=== PATIENT | female | born 1980 | race Caucasian/White ===

== ENCOUNTER 2017-09-11 15:21 | Emergency (ER) | payer SELFPAY ==
[2017-09-11 15:31] VITALS: BP 146/65; PULSE 90; RESP 18; TEMP 97.8; O2SAT 99
--- NOTE | 2017-09-11 17:32 | ED PDOC ---
HPI: Female Pain Time Seen by Provider: 09/11/17 16:34 Chief Complaint (Nursing): Female Genitourinary Chief Complaint (Provider): Female Genitourinary History Per: Patient History/Exam Limitations: no limitations Onset/Duration Of Symptoms: Days (x2) Current Symptoms Are (Timing): Still Present Additional Complaint(s): Jonathan Robles is a 37 year old female with no significant past medical history, who presents to the ED complaining of dysuria with associated urinary frequency x2 days.She denies any back pain, fever, nausea, or vomiting. She reports feeling like she had a tactile fever yesterday which resolved that day. She notes a history of similar symptoms 2 years ago when she was diagnosed with a UTI. LNMP 2 weeks ago. PMD: [facility] Past Medical History Reviewed: Historical Data, Nursing Documentation, Vital Signs Vital Signs: Last Vital Signs Temp 97.8 F 09/11/17 15:29 Pulse 90 09/11/17 15:29 Resp 18 09/11/17 15:29 BP 146/65 09/11/17 15:29 Pulse Ox 99 09/11/17 15:29 - Medical History PMH: No Chronic Diseases - Family History Family History: States: Unknown Family Hx - Home Medications Home Medications: Ambulatory Orders Medication Instructions Recorded Albuterol 0.083% [Albuterol 0.083% 2.5 mg IH Q8 PRN #100 neb 12/02/16 Inhal Romina (2.5 mg/3 ml) UD] Azithromycin [Zithromax] 250 mg PO DAILY #4 tab 12/02/16 Ibuprofen [Motrin] 600 mg PO Q8 PRN #21 tab 12/02/16 Mask, Face [Nebulizer Aerosol Mask 1 dev XX PRN PRN #1 dev 12/02/16 Adult] Nebulizer [Aeroeclipse II] 1 each MC Q8 PRN #1 each 12/02/16 Promethazine/Codeine 5 ml PO Q12 PRN #100 ml 12/02/16 [Codeine/Promethazine 10 MG/5 Ml-6.25 MG/5 Ml] Nitrofurantoin Macrocrystals 100 mg PO BID 7 Days #14 cap 09/11/17 [Macrobid] Phenazopyridine [Phenazopyridine 200 mg PO TID 2 Days #6 tab 09/11/17 HCl] - Allergies Allergies/Adverse Reactions: Allergies Allergy/AdvReac Type Severity Reaction Status Date / Time No Known Allergies Allergy Verified 09/11/17 15:29 Review of Systems ROS Statement: Except As Marked, All Systems Reviewed And Found Negative Constitutional: Positive for: Fever (tactile yesterday with resolution) Gastrointestinal: Negative for: Nausea, Vomiting Genitourinary Female: Positive for: Dysuria, Frequency. Negative for: Incontinence, Hematuria, Vaginal Discharge, Vaginal Bleeding, Pelvic Pain Musculoskeletal: Negative for: Back Pain Physical Exam - Reviewed Nursing Documentation Reviewed: Yes Vital Signs Reviewed: Yes - Physical Exam Appears: Positive for: Well, No Acute Distress Head Exam: Positive for: ATRAUMATIC Skin: Positive for: Normal Color. Negative for: Rash Eye Exam: Positive for: Normal appearance Gastrointestinal/Abdominal: Positive for: Normal Exam, Soft. Negative for: Tenderness Back: Positive for: Normal Inspection. Negative for: L CVA Tenderness, R CVA Tenderness, Vertebral Tenderness Neurologic/Psych: Positive for: Alert, Oriented (x3) - Laboratory Results Urine POC: Negative Urine dip results: Positive for: Leukocyte Esterase, Blood. Negative for: Nitrate, Ketones, Glucose, Bilirubin, Protein - ECG O2 Sat by Pulse Oximetry: 99 (RA) Pulse Ox Interpretation: Normal Medical Decision Making Medical Decision Making: Time: 16:44 Initial Impression: Possible UTI Plan: --Urine --Urine culture --Urinalysis --Reevaluation In light of UA results and patient's symptoms, patient treated with Macrobid and Pyridium. She was advised to drink plenty of fluids, take medication as prescribed, and f/ u with PMD/Clinic for reevaluation. Return with any worsening or change in symptoms. She expresses understanding and agreement. Scribe Attestation: Documented by Lucian Mace, acting as a scribe for Siena Tariq PA-C Provider Scribe Attestation: All medical record entries made by the Scribe were at my direction and personally dictated by me. I have reviewed the chart and agree that the record accurately reflects my personal performance of the history, physical exam, medical decision making, and the department course for this patient. I have also personally directed, reviewed, and agree with the discharge instructions and disposition. Disposition - Clinical Impression Clinical Impression: UTI (urinary tract infection) - Patient ED Disposition Is Patient to be Admitted: No Counseled Patient/Family Regarding: Studies Performed, Diagnosis, Need For Followup, Rx Given - Disposition Referrals: [facility] [Outside] Disposition: Routine/Home Disposition Time: 18:14 Condition: STABLE Additional Instructions: Take medication as prescribed, f/u with PMD/Clinic and return to the ED for any worsening or change in symptoms. Prescriptions: Nitrofurantoin Macrocrystals [Macrobid] 100 mg PO BID 7 Days #14 cap Phenazopyridine [Phenazopyridine HCl] 200 mg PO TID 2 Days #6 tab Instructions: Urinary Tract Infection in Women (ED) Forms: [facility] (Swedish) Print Language: ITALIAN
[2017-09-11 18:06] LABS: URINE BACTERIA RARE (<OCC); URINE BILIRUBIN NEGATIVE (NEGATIVE); URINE BLOOD SMALL (NEGATIVE); URINE COLOR COLORLESS (YELLOW); URINE GLUCOSE (UA) NEG (Normal); URINE KETONE NEGATIVE (NEGATIVE); URINE LEUKOCYTE ESTERASE TRACE Leu/uL (Negative); URINE PROTEIN NEGATIVE (NEGATIVE); URINE UROBILINOGEN 0.2-1.0 mg/dL (0.2-1.0)
[2017-09-11 18:09] LABS: RBC URINE 7 /hpf (0-3); WBC URINE 9 /hpf (0-5)
== END 2017-09-11 18:42 | disposition home or self-care (01) ==
LOC: H.ER 15:21
DX: N39.0 Urinary tract infection, site not specified (principal)

== ENCOUNTER 2017-10-06 11:25 | Emergency (ER) | payer SELFPAY ==
[2017-10-06 11:31] VITALS: BP 115/75; PULSE 94; TEMP 98; O2SAT 99
[2017-10-06 11:32] VITALS: BMI 23.8
[2017-10-06 11:45] VITALS: RESP 17
--- NOTE | 2017-10-06 12:51 | ED PDOC ---
HPI: CCC, URI, Sore Throat Time Seen by Provider: 10/06/17 11:33 Chief Complaint (Nursing): Cough, Cold, Congestion Chief Complaint (Provider): Throat pain, tactile fever History Per: Patient, Family History/Exam Limitations: no limitations Onset/Duration Of Symptoms: Days (2) Current Symptoms Are (Timing): Still Present Location Of Pain: Throat Sick Contacts (Context): None Associated Symptoms: Fever, Sore Throat. denies: Chills, Cough, Sputum, Myalgias, Vomiting, Diarrhea Ear Symptoms: Bilateral: None Additional Complaint(s): No medications taken for pain in the past. Past Medical History Reviewed: Historical Data, Nursing Documentation, Vital Signs Vital Signs: Last Vital Signs Temp 98 F 10/06/17 11:41 Pulse 94 H 10/06/17 11:41 Resp 17 10/06/17 11:41 BP 115/75 10/06/17 11:41 Pulse Ox 99 10/06/17 11:41 - Medical History PMH: No Chronic Diseases - Surgical History Surgical History: No Surg Hx - Family History Family History: States: Unknown Family Hx - Living Arrangements Living Arrangements: With Family - Social History Current smoker - smoking cessation education provided: No - Home Medications Home Medications: Ambulatory Orders Medication Instructions Recorded Albuterol 0.083% [Albuterol 0.083% 2.5 mg IH Q8 PRN #100 neb 12/02/16 Inhal Romina (2.5 mg/3 ml) UD] Azithromycin [Zithromax] 250 mg PO DAILY #4 tab 12/02/16 Ibuprofen [Motrin] 600 mg PO Q8 PRN #21 tab 12/02/16 Mask, Face [Nebulizer Aerosol Mask 1 dev XX PRN PRN #1 dev 12/02/16 Adult] Nebulizer [Aeroeclipse II] 1 each MC Q8 PRN #1 each 12/02/16 Promethazine/Codeine 5 ml PO Q12 PRN #100 ml 12/02/16 [Codeine/Promethazine 10 MG/5 Ml-6.25 MG/5 Ml] Nitrofurantoin Macrocrystals 100 mg PO BID 7 Days #14 cap 09/11/17 [Macrobid] Phenazopyridine [Phenazopyridine 200 mg PO TID 2 Days #6 tab 12/11/17 HCl] - Allergies Allergies/Adverse Reactions: Allergies Allergy/AdvReac Type Severity Reaction Status Date / Time No Known Allergies Allergy Verified 09/11/17 15:29 Review of Systems ROS Statement: Except As Marked, All Systems Reviewed And Found Negative Constitutional: Positive for: Fever (Tactile, no temp at home ). Negative for: Chills ENT: Positive for: Throat Pain Cardiovascular: Negative for: Chest Pain, Palpitations Respiratory: Negative for: Cough, Shortness of Breath Physical Exam - Reviewed Nursing Documentation Reviewed: Yes Vital Signs Reviewed: Yes - Physical Exam Appears: Positive for: Well, Non-toxic, No Acute Distress Head Exam: Positive for: ATRAUMATIC, NORMAL INSPECTION, NORMOCEPHALIC Skin: Positive for: Normal Color, Warm, DRY Eye Exam: Positive for: Normal appearance ENT: Positive for: Normal ENT Inspection. Negative for: Pharynx Is (Mild erythema of pharynx and tonsils, uvula midline ) Neck: Positive for: Normal, Painless ROM Cardiovascular/Chest: Positive for: Regular Rate, Rhythm Respiratory: Positive for: CNT, Normal Breath Sounds Gastrointestinal/Abdominal: Positive for: Normal Exam, Bowel Sounds, Soft Back: Positive for: Normal Inspection Extremity: Positive for: Normal ROM Neurologic/Psych: Positive for: Alert, Oriented - ECG O2 Sat by Pulse Oximetry: 99 Disposition - Clinical Impression Clinical Impression: Viral pharyngitis - Patient ED Disposition Is Patient to be Admitted: No Counseled Patient/Family Regarding: Diagnosis, Need For Followup - Disposition Disposition: Routine/Home Disposition Time: 12:51 Condition: GOOD Instructions: Pharyngitis (ED) Print Language: ENGLISH
== END 2017-10-06 13:19 | disposition home or self-care (01) ==
LOC: H.ER 11:25
DX: J02.9 Acute pharyngitis, unspecified (principal)

== ENCOUNTER 2018-07-13 21:03 | Emergency (ER) | payer OTHER ==
[2018-07-13 21:03] VITALS: BMI 23.8
[2018-07-13 21:46] VITALS: RESP 20
--- NOTE | 2018-07-14 00:02 | ED PDOC ---
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 She notes she is 24 weeks and wasnt sure what she could and couldnt take, prompting ED visit. Patient reports sick contacts in her daughter. 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 Patient denies headache, ear pain, shortness of breath, chest pain, abdominal pain, nausea, vomiting, dizziness, or diarrhea. PMD: Clinic LNMP: 6 months ago <Suzy Snow - Last Filed: 07/14/18 00:59> <Yenny Stein - Last Filed: 07/14/18 22:31> Time Seen by Provider: 07/13/18 22:36 Chief Complaint (Nursing): Fever Supervising Attending Note - Attestation: I have personally seen and examined this patient.: No I have reviewed all pertinent clinical information, including history, physical exam and plan: Yes <Yenny Stein - Last Filed: 07/14/18 22:31> Past Medical History Reviewed: Historical Data, Nursing Documentation, Vital Signs Vital Signs: Last Vital Signs Temp 98 F 07/13/18 21:43 Pulse 99 H 07/13/18 21:43 Resp 20 07/13/18 21:43 BP 104/66 07/13/18 21:43 Pulse Ox 99 07/13/18 21:43 - Medical History PMH: Pneumonia - Surgical History Surgical History: No Surg Hx - Family History Family History: States: Unknown Family Hx <Suzy Snow - Last Filed: 07/14/18 00:59> Vital Signs: Last Vital Signs Temp 97.8 F 07/14/18 00:05 Pulse 80 07/14/18 00:05 Resp 20 07/13/18 21:43 BP 94/50 L 07/14/18 00:05 Pulse Ox 99 07/14/18 01:09 <Yenny Stein - Last Filed: 07/14/18 22:31> - Home Medications Home Medications: Ambulatory Orders Medication Instructions Recorded Albuterol 0.083% [Albuterol 0.083% 2.5 mg IH Q8 PRN #100 neb 12/02/16 Inhal Romina (2.5 mg/3 ml) UD] Azithromycin [Zithromax] 250 mg PO DAILY #4 tab 12/02/16 Ibuprofen [Motrin] 600 mg PO Q8 PRN #21 tab 12/02/16 Mask, Face [Nebulizer Aerosol Mask 1 dev XX PRN PRN #1 dev 12/02/16 Adult] Promethazine/Codeine 5 ml PO Q12 PRN #100 ml 12/02/16 [Codeine/Promethazine 10 MG/5 Ml-6.25 MG/5 Ml] RX: Nebulizer [Aeroeclipse II] 1 each MC Q8 PRN #1 each 12/02/16 Nitrofurantoin Macrocrystals 100 mg PO BID 7 Days #14 cap 09/11/17 [Macrobid] Phenazopyridine [Phenazopyridine 200 mg PO TID 2 Days #6 tab 09/11/17 HCl] Acetaminophen [Acetaminophen 8 650 mg PO Q8 PRN #21 tablet.er 07/13/18 Hour] RX: Amoxicillin 875 mg PO BID #14 tablet 07/13/18 - Allergies Allergies/Adverse Reactions: Allergies Allergy/AdvReac Type Severity Reaction Status Date / Time No Known Allergies Allergy Verified 07/13/18 21:43 Review of Systems ROS Statement: Except As Marked, All Systems Reviewed And Found Negative Constitutional: Positive for: Fever ENT: Positive for: Nose Congestion, Throat Pain. Negative for: Ear Pain Cardiovascular: Negative for: Chest Pain Respiratory: Positive for: Cough. Negative for: Shortness of Breath Gastrointestinal: Negative for: Nausea, Vomiting, Abdominal Pain, Diarrhea Neurological: Negative for: Headache, Dizziness <Suzy Snow - Last Filed: 07/14/18 00:59> Physical Exam - Reviewed Nursing Documentation Reviewed: Yes Vital Signs Reviewed: Yes - Physical Exam Comments: GENERAL APPEARANCE: Patient is awake, alert, not toxic appearing, in no acute distress. SKIN: Warm, dry; (-) cyanosis; (-) petechiae, (-) other rash EYES: (-) conjunctival pallor, (-) icterus. ENMT: TMs (-) erythema (-) bulging. Pharynx: (+) bilateral tonsillar erythema, (+) right sided tonsillar exudate. Airway patent, (-) stridor. Mucous membranes moist. Uvula midline. (+) 1+ tonsillar hypertrophy NECK: (-) stiffness, (-) meningismus, (-) lymphadenopathy. CHEST AND RESPIRATORY: (-) retractions, (-) rales, (-) rhonchi, (-) wheezes; breath equal bilaterally. HEART AND CARDIOVASCULAR: (-) irregularity; (-) murmur, (-) gallop. ABDOMEN AND GI: Soft; (-) tenderness; (-) distention, (-) guarding; (-) palpable mass. Normal gravid uterus. EXTREMITIES: (-) deformity; distal pulses are present NEURO AND PSYCH: Mental status as above; interacts appropriately for age. Strength and tone good. <Suzy Snow - Last Filed: 07/14/18 00:59> - ECG O2 Sat by Pulse Oximetry: 99 (RA) Pulse Ox Interpretation: Normal <Suzy Snow - Last Filed: 07/14/18 00:59> Medical Decision Making Medical Decision Making: Time: 2237 Initial Impression: pharyngitis, tonsillitis, cough and congestion Initial Plan --Amoxicillin 500 mg PO --Tylenol 650 mg PO --Throat culture --Influenza A B --Rapid strep 0000 Rapid Strep: Negative Influenza: Negative On re-evaluation, patient reports improvement of symptoms. On exam, patient remains AAOx3, in no acute distress. Lungs CTA, cardiac RRR, abdomen soft, nontender, repeat neuro exam shows no focal findings. Vitals stable. Lab/Diagnostic results d/w with the patient in great detail. Diagnosis of pharyngitis/tonsillitis, cough and congestion d/w patient. Based on history, exam, and diagnostic results, plan will be for outpatient follow up. Patient instructed to follow up with PMD / referral provided / the clinic in 1-2 days without fail. Advised to take medication as prescribed. Return to the emergency room at any time for any new or worsening symptoms. Patient states she agrees with and understandings discharge instructions. States that she agrees with the plan and disposition. Verbalized and repeated discharge instructions and plan. I have given the patient opportunity to ask any additional questions. Scribe Attestation: Documented by Cat Green, acting as a scribe for Suzy Snow PA-C Provider Scribe Attestation: All medical record entries made by the Scribe were at my direction and personally dictated by me. I have reviewed the chart and agree that the record accurately reflects my personal performance of the history, physical exam, medical decision making, and the department course for this patient. I have also personally directed, reviewed, and agree with the discharge instructions and disposition. <Suzy Snow - Last Filed: 07/14/18 00:59> Disposition - Patient ED Disposition Is Patient to be Admitted: No Counseled Patient/Family Regarding: Studies Performed, Diagnosis, Need For Followup, Rx Given - Disposition Disposition: Routine/Home Disposition Time: 23:59 - POA Present On Arrival: None <Suzy Snow - Last Filed: 07/14/18 00:59> <Yenny Stein - Last Filed: 07/14/18 22:31> - Clinical Impression Clinical Impression: Pharyngitis, Tonsillitis, Cough in adult, Nasal congestion - Disposition Referrals: [facility] [Outside] [facility] [Outside] Condition: STABLE Additional Instructions: La atencin mdica de emergencia que recibi hoy se dirigi hacia priya sntomas agudos. Si le recetaron un medicamento, llnelo en la farmacia y tmelo segn las indicaciones. Los sntomas pueden tardar varios callahan en resolverse. Regrese al departamento de emergencias si priya sntomas empeoran, no mejoran o si tiene otros problemas. Comunquese con hendrix mdico / proveedor / clnica referida en 2 callahan para cosme evaluacin adicional. El tratamiento en el departamento de emergencias no puede reemplazar la atencin mdica en curso por parte de un mdico de cabecera fuera del departamento de emergencias. Prescriptions: Acetaminophen [Acetaminophen 8 Hour] 650 mg PO Q8 PRN #21 tablet.er PRN Reason: fever, pain RX: Amoxicillin 875 mg PO BID #14 tablet Instructions: Cough in Adults, Sore Throat in Adults, Bacterial Upper Respiratory Infection, Adult Forms: [employer] (Kiswahili) Print Language: TELUGU Results - Lab Results Lab Results: 07/13/18 07/13/18 23:01 23:01 Influenza Typ A,B (EIA) Negative for flu a/b Grp A Beta Strep Ag Negative <Suzy Snow - Last Filed: 07/14/18 00:59> - Lab Results Lab Results: 07/13/18 07/13/18 23:01 23:01 Influenza Typ A,B (EIA) Negative for flu a/b Grp A Beta Strep Ag Negative <Yenny Stein - Last Filed: 07/14/18 22:31>
[2018-07-14 00:12] VITALS: BP 94/50; PULSE 80; TEMP 97.8
[2018-07-14 01:01] VITALS: O2SAT 99
== END 2018-07-14 00:10 | disposition home or self-care (01) ==
LOC: H.ER 21:03
DX: J03.90 Acute tonsillitis, unspecified (principal); R05 Cough

== ENCOUNTER 2018-10-09 08:20 | Emergency (ER) | payer SELFPAY ==
[2018-10-09 09:34] VITALS: BMI 27.0
[2018-10-09 17:05] VITALS: BP 110/69; PULSE 88
--- NOTE | 2018-10-10 01:22 | OBDCSUM ---
Datetime: 10/09/2018 09:32 Discharge Diagnosis, Provider: False Labor - Undelivered
--- NOTE | 2018-10-10 01:22 | OBHP ---
Datetime: 10/09/2018 09:20 IP Adm Impression: , intrauterine ; No Active Labor; Intact Membranes IP Admit Plan: Observation/Evaluation; Discharge home Admit Comment, IP Provider: 38 y/o, , with 36.1 wks with EDC of 11/05/18 based on 1st trimester US presents to [facility] with vaginal spotting that started yesterday evening. Vaginnal spotting is scent , thick brownish fluid. Denies any active VB. Denies LOF or CTx. Endorses good movements. Denie s dysuria, fever, chills, N/V/D/C. : [facility] Course: AMA, Diet controlled GDM Dx at 26 weeks, S/p uncomplicated term @ 30, Transamin itis, F/Hx of heart Dx, EKG/maternal echo NL (06/19), echo per genetics: done 06/27 Last US: Placenta Anterior, No previa seen, Grade 1 PMHx: Denies PSHx: Denies Allergies: NKDA Medications: PNVs SOcialHx: Denies ETOH/smoking/drugs F/H: Mom of [place] in 30s, Sister diagnosed with heart condition in 30s A/P: 38 y/o, , with 36.1 wks with vaginal spotting - EFM and toco monitoring: NST reactive, Irregular CTx - SSE/SVE: close/thick/post. No active VB - Bedside US done - Patient to F/U with [facility] today for US - GBS Cx sent - Patient to follow up with [facility] clinic within 1 week for follow up. Labor precautions provided. Case discussed with Dr. Virgilio Castro, PGY1 [facility]. I saw and examied this pt. She has appt later today for sono 3:30pm. Will call to scheduled earlier. She does not have another appt with [facility]. She was expecting a call last w three affiliated. WIll do GBS culutre now...follo wup with [facility] within one week. PGY1 resident will contact [facility] t o schedule. Pelvic Type - PN: Adequate Extremities - PN: Normal Abdomen - PN: Normal Back - PN: Normal Breast - PN: Normal Lungs - PN: Normal Heart - PN: Normal Thyroid - PN: Not Done Neurologic - PN: Normal HEENT - PN: Normal General - PN: Normal Presentation-Admit: Vertex Membranes, Provider: Intact Comments, ACOG Physical Exam: SSE/SVE: Cervix close, thick, posterior, No active VB. Pool Provider: Negative IP Hx Assessment: The History has been Reviewed and is Current EGA AdmitDate IP: 36.1 Vital Signs Provider: Reviewed; Within Normal Limits IP Chief Complaint: Vaginal bleeding FHR Category Provider Fetus A: Category I Dilatation, Provider: 0 Effacement, Provider: thick Station, Provider: posterior Genitourinary Exam: Normal DTRs - PN: Not Done
== END 2018-10-09 09:56 | disposition home or self-care (01) ==
LOC: H.EROB2 08:20 → H.L&D 08:45 → H.EROB2 09:56
DX: O26.853 Spotting complicating pregnancy, third trimester (principal); O24.410 Gestational diabetes mellitus in pregnancy, diet controlled; Z3A.36 36 weeks gestation of pregnancy

== ENCOUNTER 2018-11-05 02:23 | Inpatient (IN) | payer MEDICAID, SELFPAY ==
[2018-11-05 03:14] VITALS: BMI 29.0
[2018-11-05 03:48] LABS: BASO # 0.1 K/uL (0.0-0.2); BASO % 0.6 % (0.0-2.0); EOS # 0.1 K/uL (0.0-0.7); EOS % 0.6 % (0.0-4.0); HEMOGLOBIN 11.2 g/dL (12.0-16.0); LYMPH # 1.6 K/uL (1.0-4.3); LYMPH % 16.4 % (20.0-40.0); MEAN CELL VOLUME 79.2 fl (81.0-99.0); MEAN CORPUSCULAR HEMOGLOBIN 25.7 pg (27.0-31.0); MEAN CORPUSCULAR HGB CONC 32.5 g/dL (33.0-37.0); MEAN PLATELET VOLUME 9.8 fl (7.2-11.7); MONO # 0.7 K/uL (0.0-0.8); MONO % 6.9 % (0.0-10.0); NEUT # 7.5 K/uL (1.8-7.0); NEUT % 75.5 % (50.0-75.0); NRBC % 0.1 % (0.0-0.0); RBC 4.36 Mil/uL (3.80-5.20); RED CELL DISTRIBUTION WIDTH 15.2 % (11.5-14.5)
[2018-11-05] MEDS: Lactated Ringer's 1,000 ML IV SCH ×5 (04:00→13:11)
[2018-11-05] MEDS ORDERED: Fentanyl/Bupivacaine HCl 250 ML EPI ONE (05:19)
[2018-11-05 06:39] VITALS: O2SAT 98
[2018-11-05] MEDS ORDERED: Oxytocin 30 UNIT 30 UNITS/500 ML BAG IV ONE ×2 (07:18→13:12)
[2018-11-05] MEDS ORDERED: Lactated Ringer's 1,000 ML IV SCH (07:30)
[2018-11-05] MEDS ORDERED: OXYTOCIN/0.9 % NS 20 UNIT/1,000 ML BAG IV SCH (07:30)
--- NOTE | 2018-11-05 07:41 | OBADHP ---
Datetime: 11/05/2018 07:22 Pelvic Type - PN: Adequate Extremities - PN: Normal Abdomen - PN: Normal Back - PN: Normal Breast - PN: Not Done Lungs - PN: Normal Heart - PN: Normal Thyroid - PN: Normal Neurologic - PN: Normal HEENT - PN: Normal General - PN: Normal FHR - Baseline A Provider: 160 Vital Signs Provider: Reviewed; Within Normal Limits IP Chief Complaint: Uterine contractions; Maternal discomfort NICHD Variability Prov Fetus A: Moderate 6-25bpm NICHD Accel Fetus A IP Provider: 15X15 FHR Category Provider Fetus A: Category I NICHD Decel Fetus A IP Provider: None Dilatation, Provider: 3 Effacement, Provider: 75 Station, Provider: -2 Genitourinary Exam: Normal DTRs - PN: Normal EGA AdmitDate IP: 40.0 IP Adm Impression: Term, intrauterine IP Admit Plan: Admit to unit; Initiate labor protocol Datetime: 11/05/2018 07:07 Admit Comment, IP Provider: 38 y/o, , with IUP @ 40 wks with EDC of 11/05/18 presents to [facility] w ith contractoins and expulsion of her mucus plug last night at 7 p.m. Denies vaginal bleeding and los s of fluid per the vagina. Endorses good movements. Denies dysuria, fever, chills, N/V/D/C. : [facility]- Dr. Kennedy; last visit was 11/01/18 Course: AMA, Diet controlled GDM Dx at 26 weeks, S/p uncomplicated term @ 30, Transamin itis, F/Hx of heart Dx, EKG/maternal echo NL (06/19), echo per genetics: done 06/27 Last US: Placenta Anterior, No previa seen, Grade 1 PMHx: Denies PSHx: Denies Allergies: NKDA Medications: PNVs SocialHx: Denies ETOH/smoking/drugs Family History: Mom of [place] in 30s, Sister diagnosed with heart condition in 30s P.E: patient is comfortable at this time. Vitally stable. Heart: S1 and S2 no murmurs, gallops or rubs. Lungs: Clear bilaterally. No wheezes, rhonchi or rales. Abdomen: Soft, gravid, non-tender. BS present in all quadrants. Extremities: +2 dorsalis pedis pulses bilaterally. No lower extremity edema. SVE: 3cm /75% / -2 A/P: 38 y/o, , with IUP at 40 weeks presented with contractions will be admitted for labor. - Continue EFM and toco monitoring: NST reactive- category 1 tracing with regular contractions - Admit patient - Initiate labor protocol - LR @ maintainence - Anesthesia consult for Epidural - f/u CBC, T_S, HIV, RPR Case discussed with attending Melissa Barahona, PGY1 OB Hopsitalist note: Pt was seen and examined when she cam to [facility] 2-3cm ... WIll admit in labor. Her questions answered about pain managment. MAHNDO Presentation-Admit: Vertex IP Hx Assessment: The History has been Reviewed and is Current Datetime: 10/09/2018 09:20 Membranes, Provider: Intact Comments, ACOG Physical Exam: SSE/SVE: Cervix close, thick, posterior, No active VB. Pool Provider: Negative
--- NOTE | 2018-11-05 10:34 | OBPN ---
Datetime: 11/05/2018 10:29 IP Progress Impression: Normal progression of labor IP Procedures: Artificial ROM; Sterile Vag Exam IP Progress Plan: Continue present management Membranes, Provider: Ruptured Amniotic Fluid Color, Provider: Meconium, Light FHR - Baseline A Provider: 150s IP Progress Note Comment: 38 yo at 40 wks in labor s/p AROM for light meconium Continue current managment Vital Signs Provider: Reviewed NICHD Variability Prov Fetus A: Moderate 6-25bpm Dilatation, Provider: 5 Effacement, Provider: 80 Station, Provider: -3 NICHD Decel Fetus A IP Provider: None Datetime: 11/05/2018 07:22 NICHD Accel Fetus A IP Provider: 15X15 FHR Category Provider Fetus A: Category I Datetime: 11/05/2018 07:07 Presentation-Admit: Vertex Datetime: 10/09/2018 09:20 Pool Provider: Negative
[2018-11-05] MEDS ORDERED: Lidocaine 1% Inj (20ml) ONE (11:22)
--- NOTE | 2018-11-05 13:18 | OBPN ---
Datetime: 11/05/2018 13:14 IP Progress Impression: Normal progression of labor IP Procedures: Sterile Vag Exam IP Progress Plan: Augmentation Membranes, Provider: Ruptured Amniotic Fluid Color, Provider: Meconium, Light Contraction Comments Provider: 2-4 FHR - Baseline A Provider: 140's IP Progress Note Comment: 38 yo at 40 wks in labor s/p AROM FHT reassuring Will start pitocin Vital Signs Provider: Reviewed NICHD Variability Prov Fetus A: Moderate 6-25bpm NICHD Decel Fetus A IP Provider: None
[2018-11-05] MEDS ORDERED: ceFAZolin 1 GM in Sodium Chloride 0.9% 100 ML IVPB ONE (16:34)
[2018-11-05] MEDS ORDERED: Dextrose 5%/Lactated Ringer's 1,000 ML IV SCH (16:45)
--- NOTE | 2018-11-05 17:06 | OBPN ---
Datetime: 11/05/2018 16:55 IP Progress Impression: Arrest of dilatation/descent IP Informed Consent Obtain: Section Delivery; Risks, Benefits and Alternatives Discussed IP Procedures: Sterile Vag Exam IP Progress Plan: Deliver- Section Membranes, Provider: Ruptured Amniotic Fluid Color, Provider: Meconium, Light FHR - Baseline A Provider: 160's IP Progress Note Comment: 38 yo at 40 wks w/ arrest of dilation at 5 cm Temp 100.3 at 4 pm Pt given 650 mg rectal tylenol Sugar 62 at 4pm D5 LR started at 125 ml/hr Discussed arrest of dilation w/ her w/ Moira Almeida R.N. translating Will proceed w/ section Consents for procedure and possible transfusion obtained from pt FHR Category Provider Fetus A: Category II NICHD Variability Prov Fetus A: Moderate 6-25bpm Dilatation, Provider: 5 Effacement, Provider: 90 Station, Provider: -2 NICHD Decel Fetus A IP Provider: None
[2018-11-05] MEDS ORDERED: EPINEPHrine 1 mg/ml (1:1000) Inj ONE (17:14)
[2018-11-05] MEDS ORDERED: Lidocaine 2% PF (10 ml) Amp ONE (17:14)
[2018-11-05] MEDS ORDERED: Morphine 1 mg/ml preservative-free Inj(Duramorph) ONE (17:38)
[2018-11-05] MEDS ORDERED: DiphenhydrAMINE 50 mg/ml Inj IVP PRN ×2 (18:33→21:33)
--- NOTE | 2018-11-05 18:46 | OBDS ---
DELIVERY PERSONNEL Delivery Doctor: She العراقي MD Scrub Nurse: Kiley Malave OBT Razor Grinder: Marlena Graf RNC Anesthesiologist: Alida Guevara MD MATERNAL INFORMATION Delivery Anesthesia: Epidural Medications in Delivery: Pitocin Estimated Blood Loss (ml): 800 Placenta Cultured: Yes Maternal Complications: None RN Comments: Atraumatic Primary of viable babyboy with Lusty cry. Dr. Harris recieved in [place] and assigned 9/9 APGARs. Patient tolerated delivery well. Skin to skin initiated. Patient and recoverying well. Provider Comments: Pre-op dx: 38 yo at 40 wks w/ arrest of dilation at 5 cm Post-op dx: same Procedure: Primary low transverse section Surgeon: Dulce Maria Fire Boss: Dr. Letty Rao, Ob fellow Anesthesia: Epidural Anesthesiologist: Dr. Guevara Findings: Viable male infant delivered through light meconium-stained fluid w/ nuchal cord x 1 at 1744. Apgars 9 and 9. Wt 7#13.4, 3555gms. Nl appearing uterus, tubes and ovaries. EBL: 800mL Fluids: 1600 mL LR Complications: None LABOR SUMMARY EDC: 11/05/2018 00:00 No. Babies in Womb: 1 Attempted: No Labor Anesthesia: Epidural LABOR INFORMATION Onset of Labor: 11/04/2018 19:00 Oxytocin: N/A Group B Beta Strep: Negative Antibiotics # of Doses: 1 Antibiotics Time of Last Dose: 1725 Steroids Given: None Reason Steroids Not Administered: Not Applicable Other Reason Not Administered: Not required MEMBRANES Membranes Rupture Method: Artificial Rupture of Membranes: 11/05/2018 10:27 Length of Rupture (hrs): 7.28 Amniotic Fluid Color: Light Meconium Amniotic Fluid Amount: Large Amniotic Fluid Odor: Normal STAGES OF LABOR Stage 3 hrs: 0 Stage 3 min: 1 Total Time in Labor hrs: 22 Total Time in Labor min: 45 CSECTION DELIVERY Primary Indication: Arrest of Descent CSection Incision: Lower Uterine Transverse BABY A INFORMATION Infant Delivery Date/Time: 11/05/2018 17:44 Method of Delivery: Born in Route : No : N/A Forceps: N/A Vacuum Extraction: N/A Shoulder Dystocia : No SHOULDER DYSTOCIA BABY A Delivery Date/Time: 11/05/2018 17:44 PRESENTATION/POSITION BABY A Presentation: Cephalic Cephalic Presentation: Vertex Vertex Position: Left Occipital Anterior Breech Presentation: N/A PLACENTA INFORMATION BABY A Placenta Delivery Time : 11/05/2018 17:45 Placenta Method of Delivery: Manual Removal Placenta Status: Delivered SCORES BABY A Heart Rate 1 min: >100 bpm Resp Effort 1 min: Good Cry Reflex Irritability 1 min: Cough or Sneeze or Pulls Away Muscle Tone 1 min: Active Motion Color 1 min: Body [place], Extremities Blue Resuscitation Effort 1 min: N/A SCORE 1 MIN: 9 Heart Rate 5 min: >100 bpm Resp Effort 5 min: Good Cry Reflex Irritability 5 min: Cough or Sneeze or Pulls Away Muscle Tone 5 min: Active Motion Color 5 min: Body [place], Extremities Blue Resuscitation Effort 5 min: N/A SCORE 5 MIN: 9 INFORMATION BABY A Gestational Age at Delivery: 40.0 Gestational Status: Term Infant Outcome : Liveborn Condition : Stable Sex: Male IDENTIFICATION/MEDS BABY A ID Band Number: [id number] ID Band Location: Left Leg; Left Arm WEIGHT/LENGTH BABY A Infant Birthweight (gms): 3555 Infant Weight (lb): 7 Infant Weight (oz): 13 Infant Length Inches: 20.50 Infant Length cms: 52.1 CORD INFORMATION BABY A No. Cord Vessels: 3 Nuchal Cord : N/A Cord Blood Taken: No Suction: Mouth
--- NOTE | 2018-11-06 05:10 | OP ---
PROCEDURE DATE: 11/05/2018 PREOPERATIVE DIAGNOSIS: This is a 38-year-old G3, P-1-0-1-1 at 40 weeks with arrest of dilation of 5 cm. POSTOPERATIVE DIAGNOSIS: This is a 38-year-old G3, P-1-0-1-1 at 40 weeks with arrest of dilation of 5 cm. PROCEDURE: Primary low-transverse section. SURGEON: Gil العراقي MD TOW DRIVER: Dr. Letty Rao, OB fellow. ANESTHESIA: Epidural. ANESTHESIOLOGIST: Salty Guevara MD FINDINGS: A viable male infant delivered through light meconium-stained fluid with a nuchal cord x1 at 17:44. Apgars 9 and 9 at 1 and 5 minutes respectively. The weight was 7 pounds 13.4 ounces or 3555 g. The lower uterine segment and the bladder were noted to be edematous. Normal-appearing uterus, tubes, and ovaries. ESTIMATED BLOOD LOSS: About 800 mL. FLUIDS: 1600 mL of LR. COMPLICATIONS: None. DESCRIPTION OF PROCEDURE: The patient was taken to the operating room where epidural anesthesia was bolused. She was prepped and draped in the normal sterile fashion in the dorsal supine position with a leftward tilt. A time-out was done. The epidural was tested and found to be adequate. A Pfannenstiel skin incision was then made with a scalpel and carried through to the underlying layer of fascia with the Bovie. The fascia was incised in the midline, and the incision was extended laterally with Frazier scissors. The inferior aspect of the fascial incision was then grasped with Kavitha clamps, elevated, and the underlying rectus muscles were dissected off bluntly, and with Frazier scissors. Attention was then turned to the superior aspect of this incision which in a similar fashion was grasped, tented up with Kavitha clamps. The rectus muscles were dissected off bluntly, and with the Frazier scissors. The rectus muscles were then in the midline. The peritoneum was identified and entered digitally. The peritoneal incision was then extended superiorly and inferiorly with good visualization of the bladder. The bladder blade was then inserted, and the vesicouterine peritoneum was identified, grasped with the pickups, and entered sharply with the Metzenbaum scissors. The incision was then extended laterally and the bladder flap was created digitally. The bladder blade was then re-inserted and the lower uterine segment was incised in a transverse fashion with the scalpel. The uterine incision was then extended laterally with bandage scissors. The bladder blade was removed. The 's head was delivered atraumatically. The cord was clamped and cut. The infant was handed off to the awaiting industrial truck mechanic. Cord blood was collected. The placenta was then delivered as the uterus was massaged. The uterus was then exteriorized and cleared of all clots and debris with a dry sponge-curettage. The uterine incision was repaired with 0 Vicryl in a running locked fashion. A second layer of the same suture was used in an imbricating fashion for hemostasis and to reinforce the incision. A stitch with 1-0 Vicryl was then placed on the right side of the incision for hemostasis and to reinforce the incision. The abdomen was then well irrigated. The uterus was returned to the abdomen. The gutters were cleared of all clots. The uterus was reexamined and found to be hemostatic. The peritoneum was then closed with 0 chromic. The muscle was then closed with a running stitch of chromic. The fascia was reapproximated with 0 Vicryl in a running fashion. The Bovie was applied to small bleeders for hemostasis. The skin was then closed with a 4-0 Monocryl with a subcuticular stitch. The patient tolerated the procedure well. Sponge, lap, and needle counts were correct. The patient had received 1 g of Ancef prior to the procedure. The patient was taken to the recovery room in stable condition. Gil العراقي MD [facility]ITALJazzy
[2018-11-06 05:52] LABS: HEMOGLOBIN 8.9 g/dL (12.0-16.0); MEAN CELL VOLUME 80.1 fl (81.0-99.0); MEAN CORPUSCULAR HEMOGLOBIN 25.1 pg (27.0-31.0); MEAN CORPUSCULAR HGB CONC 31.4 g/dL (33.0-37.0); RBC 3.52 Mil/uL (3.80-5.20); RED CELL DISTRIBUTION WIDTH 15.4 % (11.5-14.5); WHITE BLOOD COUNT 9.6 K/uL (4.8-10.8)
[2018-11-06] MEDS ORDERED: Multivitamin With Minerals Tab PO SCH (09:00)
[2018-11-06] MEDS: Multivitamin With Minerals Tab PO SCH (09:15)
--- NOTE | 2018-11-06 09:40 | OBPPN ---
Datetime: 11/06/2018 06:07 PP Pain Prov: Within normal limits PP Nausea Prov: Denies PP Flatus Prov: No PP BM Prov: No PP Breasts Prov: Normal PP Heart Prov: Normal PP Lungs Prov: Normal PP Abdomen/Uterus Prov: Normal PP Lochia Prov: Normal PP Vulva/Perineum Prov: Not Done PP CVA Tenderness Prov: Not Done PP Extremities Prov: Normal PP C/S Incision Prov: Normal PP Impression Prov: Normal progression PP Plan Prov: Continue present management PP Progress Note Prov: POD 1 S: 38 yo f S/P C-sec on 11/05/18, POD1. No overnight events. Pain tolerated with Ibuprofen. Am bulating without dizziness/ lightheadedness/palpatations. and bottle feeding. Lochia < menses. + flatus/- BM. Denies fever/chills, diarrhea, nausea/vomiting, chest pain, dyspnea, and dizzi ness. Tolerating liquid diet. O: VS: stable GEN: NAD Cardio: S1S2, no murmurs Lungs: clear breath sounds b/l, no wheezing Abdomen: BS+, appropriate tenderness to palpation. Incision not visualized, dressing intact dry an d clean. Uterus is firm and at the level of the umbilicus. Appropriate tenderness EXT: No edema, calves non-tender NEURO/PSYCH: AAOx3, no grossly focal deficits, preserved affect and mood. H/H: aCBC: 11.2/34.5 ; pCBC: 8.9/28.2 Assessment/Plan: 38 yo S/P C-sec on 11/05/18, POD1. Pt remains afebrile, tolerating pain with m edication. -Anticipating discharge 11/08 -SCDs for DVT prophylaxis, encouraged ambulating -Percocet 5/325mg q4 and Motrin 600mg po q6 for pain as per pain scale -Senakot 17.2mg po QHS -Mylicon 80mg Q6H -Encourage and ambulation Case seen and discussed with Dr العراقي -Kenna Michael, PGY1 Patient seen and examined by me this am. Agree with above note. --Dr. Brunner IP PP Procedures: None Vital Signs Provider PP: Reviewed
[2018-11-07] MEDS: Multivitamin With Minerals Tab PO SCH (09:27)
--- NOTE | 2018-11-07 10:06 | OBPPN ---
Datetime: 11/07/2018 06:02 PP Pain Prov: Within normal limits PP Nausea Prov: Denies PP Flatus Prov: Yes PP BM Prov: Yes PP Breasts Prov: Not Done PP Heart Prov: Normal PP Lungs Prov: Normal PP Abdomen/Uterus Prov: Normal PP Lochia Prov: Normal PP Vulva/Perineum Prov: Not Done PP CVA Tenderness Prov: Not Done PP Extremities Prov: Normal PP C/S Incision Prov: Normal PP Progress Prov: Normal PP Impression Prov: Normal progression PP Plan Prov: Continue present management PP Progress Note Prov: POD 2 S: 38 yo s/p C-sec on 11/05/18, POD2. No overnight events. Pain tolerated with Ibuprofen. A mbulating without dizziness/ lightheadedness/palpatations. and bottle feeding. Lochia < menses. + flatus/- BM. Denies fever/chills, diarrhea, nausea/vomiting, chest pain, dyspnea, and dizz iness. Tolerating liquid diet. O: VS: stable GEN: NAD Cardio: S1S2, no murmurs Lungs: clear breath sounds b/l, no wheezing Abdomen: BS+, appropriate tenderness to palpation. Incision not visualized, dressing intact dry an d clean. Uterus is firm and at the level of the umbilicus. Appropriate tenderness EXT: No edema, calves non-tender NEURO/PSYCH: AAOx3, no grossly focal deficits, preserved affect and mood. H/H: aCBC: 11.2/34.5 pCBC: 8.9/28.2 Assessment/Plan: 38 yo f S/P C-sec on 11/05/18, POD2. Pt remains afebrile, tolerating pain w ith medication. -Anticipating discharge 11/08. -Encourage ambulating -Percocet 5/325mg q4 and Motrin 600mg po q6 for pain as per pain scale -Senakot 17.2mg po QHS -Mylicon 80mg Q6H -Encourage and ambulation Case discussed with Dr Virgilio Michael PGY1 Patient seen and examined by me this am. Agree with above resident note. --Dr. Brunner IP PP Procedures: None Vital Signs Provider PP: Reviewed; Within Normal Limits
[2018-11-08] MEDS: Multivitamin With Minerals Tab PO SCH (08:08)
--- NOTE | 2018-11-08 10:04 | OBDCSUM ---
Datetime: 11/08/2018 07:55 Discharged to, Provider: Home Follow up at, Provider: [facility] Disch Instr Activity: Normal activity; May Shower Disch Instr Diet: Regular Discharge Instructions, Provider: Routine instructions given Discharge Diagnosis, Provider: Term Delivered Discharge Time: 11/08/2018 12:00 Follow up in weeks, Provider: 1 week wound, 6 week PP Disch Referrals: None Contraception discussed, Prov: Yes Disch Activity Restrictions: No exercising; No lifting; No sexual activity; Nothing in vagina - Inte rcourse, tampons, douche Discharge Comment, Provider: 38 yo s/p C-sec of baby boy on 11/05/18 at 40 weeks EGA. : Male, Wt. 3555 gm, 9/9 Post- D/C Summary: No OB complications. No complications during post- period. Lochia i s less than menses. Pt able to pass flatus, voiding well and able to ambulate without difficulty. Adm its to one BM. Tolerating regular diet w/o N/V. Fundus firm below umbilicus level. Pt is hemodynamica lly stable. H/H: aCBC: 11.2/34.5; pCBC: 8.9/28.2 Discharge Instructions given to patient: Encourage PNV 1 tab po q/day Ibuprofen 600 mg 1 tab po prn q4-6 if moderate pain #30. NO REFILL. Percocet 5/325 mg 1tab po prn q6h if severe pain #20. NO REFILL Ambulatory with caution, nothing per vagina/sex for 4 weeks, no heavy lifting, avoid stairs, if ex cessive bleeding or fever without relief from Tylenol go to ED Follow-up [facility] 1 week wound check and 6 week visit - scheduled via email confirmation fr meek Bryan on 11/06. Agree with above note --Dr. Corral Contraception after Delivery: Undecided
--- NOTE | 2018-11-08 10:04 | OBPPN ---
Datetime: 11/08/2018 07:53 PP Pain Prov: Within normal limits PP Nausea Prov: Denies PP Flatus Prov: Yes PP BM Prov: Yes PP Breasts Prov: Not Done PP Heart Prov: Normal PP Lungs Prov: Normal PP Abdomen/Uterus Prov: Normal PP Lochia Prov: Normal PP Vulva/Perineum Prov: Not Done PP CVA Tenderness Prov: Normal PP Extremities Prov: Normal PP C/S Incision Prov: Normal PP Progress Prov: Normal PP Impression Prov: Normal progression PP Plan Prov: Continue present management; Discharge PP Progress Note Prov: POD 3 S: 38 yo s/p C-sec on 11/05/18, POD3. No overnight events. Pain tolerated with Ibuprofen. A mbulating without dizziness/ lightheadedness/palpatations. and bottle feeding. Lochia < menses. + flatus/- BM. Denies fever/chills, diarrhea, nausea/vomiting, chest pain, dyspnea, and dizz iness. Tolerating liquid diet. O: VS: stable GEN: NAD Cardio: S1S2, no murmurs Lungs: clear breath sounds b/l, no wheezing Abdomen: BS+, appropriate tenderness to palpation. Incision visualized, dry and clean with no eryt afshin or drainage. Uterus is firm and at the level of the umbilicus. Appropriate tenderness EXT: No edema, calves non-tender NEURO/PSYCH: AAOx3, no grossly focal deficits, preserved affect and mood. H/H: aCBC: 11.2/34.5 pCBC: 8.9/28.2 Assessment/Plan: 38 yo f S/P C-sec on 11/05/18, POD3. Pt remains afebrile, tolerating pain w ith medication. -Anticipating discharge 11/08 -Encourage ambulating -Percocet 5/325mg q4 and Motrin 600mg po q6 for pain as per pain scale -Senakot 17.2mg po QHS -Mylicon 80mg Q6H -Encourage and ambulation Case discussed with Dr George Michael PGY1 Patient seen and examined by me this am. Agree with above resident note. Patient for discharge h ome today. Patient given rx for pain meds and Dulcolax. RTC in 1 wk for incision check. --Dr. Brunner IP PP Procedures: None Vital Signs Provider PP: Reviewed; Within Normal Limits
[2018-11-08 17:59] VITALS: BP 108/64; PULSE 82; RESP 19; TEMP 98
== END 2018-11-08 11:52 | disposition home or self-care (01) | DRG 540 ==
LOC: H.EROB2 02:23 → H.L&D 03:14 → H.OB/GYN 21:31
PROVIDERS: ADMIT Obstetrics & Gynecology; ATTEND Obstetrics & Gynecology
PROC: 10D00Z1 Extraction of Products of Conception, Low, Open Approach (ICD-10-PCS; principal; 2018-11-05)
PROC: 4A1HXCZ Monitoring of Products of Conception, Cardiac Rate, External Approach (ICD-10-PCS; 2018-11-05)
DX: O62.1 Secondary uterine inertia (principal); O24.420 Gestational diabetes mellitus in childbirth, diet controlled; Z37.0 Single live birth; Z3A.40 40 weeks gestation of pregnancy; O77.0 Labor and delivery complicated by meconium in amniotic fluid; O69.81X0 Labor and delivery complicated by cord around neck, without compression, not applicable or unspecified